=== PATIENT | female | born 2000 | race Two or more races ===

== ENCOUNTER 2025-01-23 08:03 | Emergency (ER) | payer BC ==
[~2025-01-23] VITALS: Ht 154.9 cm; Wt 61.2 kg
[2025-01-23] MEDS ORDERED: METOCLOPRAMIDE HCL 10 MG/2 ML VIAL ONE (09:51)
[2025-01-23] MEDS: IV NS 0.9% 1,000 ML BAG IV ONE (10:02)
[2025-01-23] MEDS: METOCLOPRAMIDE HCL 10 MG/2 ML VIAL IV ONE (10:03)
[2025-01-23 11:23] VITALS: BP 101/74; TEMP 98; O2SAT 98
== END 2025-01-23 11:24 | disposition home or self-care (01) ==
LOC: ER 08:09
DX: F11.10 Opioid abuse, uncomplicated (principal)
CPT/HCPCS: 99283; 96374; 96361; J2765; J7030